=== PATIENT | male | born 1940 | race Caucasian/White ===

== ENCOUNTER 2016-08-24 08:44 | Outpatient (CLI) | payer MEDICARE, OTHER | END 2016-08-24 08:45 | disposition home or self-care (01) | DX: E11.9 Type 2 diabetes mellitus without complications (principal); E78.5 Hyperlipidemia, unspecified; I10 Essential (primary) hypertension ==

== ENCOUNTER 2017-04-05 08:00 | Outpatient (CLI) | payer MEDICARE, OTHER ==
[2017-04-05 12:56] LABS: BASOPHILS % (AUTO) 0.2 %; EOSINOPHILS % (AUTO) 0.1 %; HGB - HEMOGLOBIN 14.4 g/dL (14.0-18.0); LYMPHOCYTES # (AUTO) 3.2 10^3/uL (1.5-3.5); LYMPHOCYTES % (AUTO) 35.8 %; MEAN CORPUSCULAR HEMOGLOBIN 30.7 pg (27.0-31.0); MEAN CORPUSCULAR HGB CONC 33.9 g/dL (32.0-36.0); MEAN CORPUSCULAR VOLUME 90.7 fL (80.0-94.0); MEAN PLATELET VOLUME 11.3 fL (7.4-11.4); MONOCYTES # (AUTO) 0.9 10^3/uL (0.0-1.0); MONOCYTES % (AUTO) 10.5 %; NEUTROPHILS # (AUTO) 4.8 10^3/uL (1.5-6.6); NEUTROPHILS % (AUTO) 53.4 %; PLT - PLATELET COUNT 174 10^3/uL (130-450); RED BLOOD COUNT 4.69 10^6/uL (4.70-6.10); RED CELL DISTRIBUTION WIDTH 14.5 % (12.0-15.0); WHITE BLOOD COUNT 9.1 x10^3/uL (4.8-10.8)
[2017-04-05 13:21] LABS: ALBUMIN 4.3 g/dL (3.2-5.5); ALBUMIN/GLOBULIN RATIO 1.1 (1.0-2.2); BILIRUBIN,TOTAL 0.2 mg/dL (0.2-1.0); CALCIUM 9.6 mg/dL (8.5-10.3); CREATININE 1.1 mg/dL (0.6-1.2); TOTAL PROTEIN 8.1 g/dL (6.7-8.2)
[2017-04-05 13:42] LABS: HB2 TOTAL 15.6 g/dL; HEMOGLOBIN A1C 0.67 g/dL; HEMOGLOBIN A1C % 6.1 % (4.6-6.2)
== END 2017-04-05 08:01 | disposition home or self-care (01) ==
LOC: LAB.WCP 08:00
PROVIDERS: ATTEND Family Medicine
DX: D69.6 Thrombocytopenia, unspecified (principal); D12.6 Benign neoplasm of colon, unspecified; E11.9 Type 2 diabetes mellitus without complications; I10 Essential (primary) hypertension
CPT/HCPCS: 36415; 80053; 83036; 85025

== ENCOUNTER 2018-02-04 07:39 | Outpatient (CLI) | payer MEDICARE, OTHER ==
[2018-02-04 13:51] LABS: ALBUMIN 4.1 g/dL (3.2-5.5); ALBUMIN/GLOBULIN RATIO 1.3 (1.0-2.2); ALKALINE PHOSPHATASE 54 IU/L (42-121); ALT ALANINE AMINOTRANSFERASE 33 IU/L (10-60); AST ASPARTATE AMINOTRANSFERASE 33 IU/L (10-42); BILIRUBIN,TOTAL 0.8 mg/dL (0.2-1.0); BUN - BLOOD UREA NITROGEN 17 mg/dL (6-20); CALCIUM 9.1 mg/dL (8.5-10.3); CARBON DIOXIDE - CO2 28 mmol/L (21-32); CHLORIDE 106 mmol/L (101-111); CHOL/HDL RATIO 3.4 (<5.0); CHOLESTEROL 145 mg/dL; GFR - MDRD 73 (>89); GLUCOSE 114 mg/dL (70-100); HDL CHOLESTEROL 43 mg/dL; LDL CHOLESTEROL,CALCULATED 73 mg/dL; LDL/HDL RATIO 1.7 (<3.6); SODIUM 141 mmol/L (135-145); TOTAL PROTEIN 7.2 g/dL (6.7-8.2); VLDL CHOLESTEROL 29 mg/dL
[2018-02-04 13:57] LABS: HB2 TOTAL 14.2 g/dL; HEMOGLOBIN A1C 0.56 g/dL; HEMOGLOBIN A1C % 5.8 % (4.6-6.2)
== END 2018-02-04 23:59 ==
LOC: LAB.WCP 07:39
PROVIDERS: ATTEND Family Medicine
DX: D12.6 Benign neoplasm of colon, unspecified (principal); E11.9 Type 2 diabetes mellitus without complications; J06.9 Acute upper respiratory infection, unspecified; R74.0 Nonspecific elevation of levels of transaminase and lactic acid dehydrogenase [LDH]; E78.5 Hyperlipidemia, unspecified; I10 Essential (primary) hypertension
CPT/HCPCS: 36415; 80053; 80061; 82043; 83036; 83721

== ENCOUNTER 2018-08-08 07:35 | Outpatient (CLI) | payer MEDICARE, OTHER ==
[2018-08-08 13:26] LABS: ALBUMIN 4.2 g/dL (3.2-5.5); ALBUMIN/GLOBULIN RATIO 1.3 (1.0-2.2); BILIRUBIN,TOTAL 0.7 mg/dL (0.2-1.0); CALCIUM 9.7 mg/dL (8.5-10.3); TOTAL PROTEIN 7.4 g/dL (6.7-8.2)
[2018-08-08 13:27] LABS: HB2 TOTAL 14.5 g/dL; HEMOGLOBIN A1C 0.59 g/dL; HEMOGLOBIN A1C % 5.9 % (4.6-6.2)
== END 2018-08-08 07:36 | disposition home or self-care (01) ==
LOC: LAB.WCP 07:35
PROVIDERS: ATTEND Family Medicine
DX: R74.0 Nonspecific elevation of levels of transaminase and lactic acid dehydrogenase [LDH] (principal); E11.9 Type 2 diabetes mellitus without complications; E78.5 Hyperlipidemia, unspecified; I10 Essential (primary) hypertension; D12.6 Benign neoplasm of colon, unspecified
CPT/HCPCS: 36415; 80053; 82043; 83036

== ENCOUNTER 2018-08-15 08:16 | Outpatient (CLI) | payer MEDICARE, OTHER ==
--- NOTE | 2018-08-15 11:39 | XRAY Report ---
Reason: DYSPNEA Procedure Date: 08/15/2018 Accession Number: [id number] / [id number] Procedure: WCP - Chest 2 View X-Ray CPT Code: 06145 FULL RESULT: EXAM: CHEST RADIOGRAPHY EXAM DATE: 08/15/2018 08:31 AM. CLINICAL HISTORY: Dyspnea. COMPARISON: None. TECHNIQUE: 2 views. FINDINGS: Lungs/Pleura: No focal opacities evident. No pleural effusion. No pneumothorax. Normal volumes. Mediastinum: Heart and mediastinal contours are unremarkable with the exception of subtle calcifications of the aortic arch. Other: None. IMPRESSION: No acute airspace disease is detected. RADIA
== END 2018-08-15 08:17 | disposition home or self-care (01) ==
LOC: DI.WCP 08:16
PROVIDERS: ATTEND Family Medicine
DX: R06.00 Dyspnea, unspecified (principal)
CPT/HCPCS: 71046

== ENCOUNTER 2020-05-07 08:00 | Outpatient (CLI) | payer MEDICARE, OTHER ==
[2020-05-07 19:18] LABS: BASOPHILS % (AUTO) 0.2 %; EOSINOPHILS # (AUTO) 0.1 10^3/uL (0.0-0.7); EOSINOPHILS % (AUTO) 1.7 %; HGB - HEMOGLOBIN 13.8 g/dL (14.0-18.0); LYMPHOCYTES # (AUTO) 2.9 10^3/uL (1.5-3.5); LYMPHOCYTES % (AUTO) 48.8 %; MEAN CORPUSCULAR HEMOGLOBIN 29.8 pg (27.0-31.0); MEAN CORPUSCULAR HGB CONC 31.2 g/dL (32.0-36.0); MEAN CORPUSCULAR VOLUME 95.7 fL (80.0-94.0); MEAN PLATELET VOLUME 13.2 fL (7.4-11.4); MONOCYTES # (AUTO) 0.5 10^3/uL (0.0-1.0); MONOCYTES % (AUTO) 8.3 %; NEUTROPHILS # (AUTO) 2.4 10^3/uL (1.5-6.6); NEUTROPHILS % (AUTO) 40.5 %; PLT - PLATELET COUNT 122 10^3/uL (130-450); RED BLOOD COUNT 4.63 10^6/uL (4.70-6.10); RED CELL DISTRIBUTION WIDTH 13.4 % (12.0-15.0)
[2020-05-07 19:41] LABS: ALBUMIN 4.2 g/dL (3.2-5.5); ALBUMIN/GLOBULIN RATIO 1.3 (1.0-2.2); ALKALINE PHOSPHATASE 54 IU/L (42-121); ALT ALANINE AMINOTRANSFERASE 50 IU/L (10-60); AST ASPARTATE AMINOTRANSFERASE 35 IU/L (10-42); BILIRUBIN,TOTAL 0.7 mg/dL (0.2-1.0); BUN - BLOOD UREA NITROGEN 16 mg/dL (6-20); CALCIUM 9.7 mg/dL (8.5-10.3); CARBON DIOXIDE - CO2 28 mmol/L (21-32); CHLORIDE 98 mmol/L (101-111); CHOL/HDL RATIO 4.1 (<5.0); CHOLESTEROL 178 mg/dL; CREATININE 0.9 mg/dL (0.6-1.2); GLUCOSE 117 mg/dL (70-100); HDL CHOLESTEROL 43 mg/dL; LDL CHOLESTEROL,CALCULATED 86 mg/dL; TOTAL PROTEIN 7.4 g/dL (6.7-8.2); VLDL CHOLESTEROL 49 mg/dL
[2020-05-07 21:01] LABS: CREATININE,URINE 48.7 mg/dL; MICROALBUM/CREATININE RATIO,UR 16.4 ug/mg (<30.0); MICROALBUMIN,URINE 0.8 mg/dL (0-300.0)
== END 2020-05-07 23:59 | disposition home or self-care (01) ==
LOC: LAB.WCP 08:00
PROVIDERS: ATTEND Internal Medicine
DX: D69.6 Thrombocytopenia, unspecified (principal); I49.3 Ventricular premature depolarization; E11.9 Type 2 diabetes mellitus without complications; I10 Essential (primary) hypertension; E78.5 Hyperlipidemia, unspecified; Z12.5 Encounter for screening for malignant neoplasm of prostate; Z13.29 Encounter for screening for other suspected endocrine disorder; R74.01 Elevation of levels of liver transaminase levels
CPT/HCPCS: 36415; 80053; 80061; 82043; 82570; 83036; 84443; 85025; G0103; 83721; 84153

== ENCOUNTER 2020-08-16 09:05 | Outpatient (CLI) | payer MEDICARE, OTHER ==
--- NOTE | 2020-08-16 11:37 | Ultrasound Report ---
PROCEDURE: Aorta Screening INDICATIONS: HX OF SMOKING TECHNIQUE: Real time scanning was performed of the aorta and iliac arteries, with image documentatio n. COMPARISON: None FINDINGS: Aorta: Proximal aortic diameter measures 2.9 cm. Mid-aorta measures 2.0 cm. Distal aortic diameter is 1.6 cm. Iliac arteries: Right common iliac artery measures 1. cm. Left common iliac artery measures 1.0 cm. IMPRESSION: No aneurysm found, no aortic stenosis identified. Reviewed by: Boubacar Ventura MD on 08/16/2020 11:35 AM PDT Approved by: Boubacar Ventura MD on 08/16/2020 11:35 AM PDT Station ID: [id number]
== END 2020-08-16 09:06 | disposition home or self-care (01) ==
LOC: DI 09:05
PROVIDERS: ATTEND Internal Medicine
DX: Z13.6 Encounter for screening for cardiovascular disorders (principal); Z87.891 Personal history of nicotine dependence

== ENCOUNTER 2020-12-03 06:21 | Day surgery (SDC) | payer MEDICARE, OTHER ==
[2020-12-03] MEDS ORDERED: LACTATED RINGERS 1,000 ML IV ONE ×2 (06:32→08:05)
--- NOTE | 2020-12-03 07:10 | HISTORY & PHYSICAL EXAMINATION ---
Chief Complaint - Chief Complaint Chief Complaint: history of colon polyps History of Present Illness - History Obtained From Records Reviewed: yes History obtained from: pt Exam Limitations: none - History of Present Illness HPI Comment/Other: History of colon polyps. Here for surveillance colonoscopy. History - Past Medical History Cardiovascular: reports: Hypertension, High cholesterol, Arrhythmia Respiratory: reports: None Endocrine/Autoimmune: reports: Type 2 diabetes GI: reports: None : reports: None HEENT: reports: None Psych: reports: None Musculoskeletal: reports: Chronic back pain Derm: reports: None MRSA Hx?: No - Past Surgical History General: reports: Colonoscopy Meds/Allgy - Home Medications Home Medications: Ambulatory Orders Medication Instructions Recorded Confirmed Aspirin [Adult Low Dose Aspirin EC] 81 mg PO DAILY 10/13/15 12/03/20 Centrum Silver 1 tab PO DAILY 10/13/15 12/03/20 Losartan [Cozaar] 1 tab PO DAILY 10/13/15 12/03/20 Pravastatin Sodium [Pravachol] 1 tab PO DAILY 10/13/15 12/03/20 metFORMIN [Glucophage] 500 mg PO DAILY 10/13/15 12/03/20 - Allergies Allergies/Adverse Reactions: Allergies Allergy/AdvReac Type Severity Reaction Status Date / Time niacin AdvReac Rash Verified 10/12/15 14:39 simvastatin AdvReac Rash Verified 10/12/15 14:39 Review of Systems - Other Findings Other Findings: 10 pt ros as above otherwise unremarkable Exam - Vital Signs Reviewed Vital Signs: Yes Vital Signs: Vital Signs x48h Temp Pulse Resp BP Pulse Ox 12/03/20 06:32 36.2 C L 93 16 144/90 H 94 - Physical Exam General Appearance: positive: No acute distress, Alert Eyes Bilateral: positive: PERRL, EOMI ENT: positive: No signs of dehydration Neck: positive: No JVD Respiratory: positive: No respiratory distress, Breath sounds nml Cardiovascular: positive: Regular rate & rhythm Abdomen: positive: Non-tender, No distention Neurologic/Psychiatric: positive: Oriented x3 Conclusion/Plan - Problem List (1) History of adenomatous polyp of colon Conclusion/Plan: plan colonoscopy. parq held and consent obtained
[2020-12-03] MEDS ORDERED: fentaNYL 250 MCG/5 ML VIAL ONE (07:21)
[2020-12-03] MEDS ORDERED: MIDAZOLAM 2 MG/2 ML VIAL ONE ×2 (07:21→07:32)
[2020-12-03 08:27] VITALS: BP 130/85
== END 2020-12-03 06:22 | disposition home or self-care (01) ==
LOC: SDS 06:21
PROVIDERS: ATTEND Surgery
PROC: 0DBN8ZZ Excision of Sigmoid Colon, Via Natural or Artificial Opening Endoscopic (ICD-10-PCS; 2020-12-03)
PROC: 0DBM8ZZ Excision of Descending Colon, Via Natural or Artificial Opening Endoscopic (ICD-10-PCS; 2020-12-03)
PROC: 0DBL8ZZ Excision of Transverse Colon, Via Natural or Artificial Opening Endoscopic (ICD-10-PCS; 2020-12-03)
PROC: 0DBM8ZZ Excision of Descending Colon, Via Natural or Artificial Opening Endoscopic (ICD-10-PCS; principal; 2020-12-03 07:30)
DX: Z12.11 Encounter for screening for malignant neoplasm of colon (principal); D12.4 Benign neoplasm of descending colon; D12.5 Benign neoplasm of sigmoid colon; D12.3 Benign neoplasm of transverse colon; K57.30 Diverticulosis of large intestine without perforation or abscess without bleeding
CPT/HCPCS: 45380; 45385; J3010; J7120

== ENCOUNTER 2020-12-17 10:39 | Outpatient (CLI) | payer MEDICARE, OTHER ==
[2020-12-17 17:51] LABS: CALCIUM 9.5 mg/dL (8.5-10.3); CREATININE 1.1 mg/dL (0.6-1.2); POTASSIUM 4.9 mmol/L (3.5-5.0)
[2020-12-17 21:18] LABS: ESTIMATED AVERAGE GLUCOSE 126 mg/dL (70-100)
== END 2020-12-17 23:59 | disposition home or self-care (01) ==
LOC: LAB.WCP 10:39
PROVIDERS: ATTEND Internal Medicine
DX: E11.9 Type 2 diabetes mellitus without complications (principal)
CPT/HCPCS: 36415; 80048; 83036

== ENCOUNTER 2020-12-24 08:58 | Outpatient (CLI) | payer MEDICARE, OTHER ==
--- NOTE | 2020-12-24 16:46 | XRAY Report ---
PROCEDURE: Lumbar Spine Complete INDICATIONS: LS PAIN INCREAS FOR SEVERAL MONTHS ASSESS FOR DJD +COMPRESSION FX TECHNIQUE: 5 views of the lumbar spine were acquired. COMPARISON: None. FINDINGS: Bones: 5 [id number] vertebrae are present. There is normal bony alignment. No vertebral body compression fractures. No suspicious bony lesions. No pars interarticularis defects. Moderate L5-S1 degenerative disease. Mild L1-L2, L2-L3, L3-L4 and L4-L5 degenerative disc disease. Mild L4-L5 and L5 -S1 facet arthropathy. Soft tissues: Overlying bowel gas pattern is normal. No suspicious soft tissue calcifications. IMPRESSION: 1. Multilevel degenerative disc disease. 2. Multilevel facet arthropathy. 3. No fracture. No acute osseous lesion. If there is continued clinical concern for pathology, then M RI should be considered for further evaluation. Reviewed by: Chaya Finley MD, PhD on 12/24/2020 4:44 PM PDT Approved by: Chaya Finley MD, PhD on 12/24/2020 4:44 PM PDT Station ID: [id number]
== END 2020-12-24 08:59 | disposition home or self-care (01) ==
LOC: LAB.N 08:58 → DI.N 08:59
PROVIDERS: ATTEND Internal Medicine
DX: M47.816 Spondylosis without myelopathy or radiculopathy, lumbar region (principal); M51.36 Other intervertebral disc degeneration, lumbar region; M47.817 Spondylosis without myelopathy or radiculopathy, lumbosacral region; M51.37 Other intervertebral disc degeneration, lumbosacral region
CPT/HCPCS: 36415; 80053; 80061; 82043; 82570; 83036; 83721; 85025

== ENCOUNTER 2021-08-10 07:20 | Outpatient (CLI) | payer MEDICARE, OTHER ==
[2021-08-10 11:42] LABS: BASOPHILS % (AUTO) 0.2 %; EOSINOPHILS # (AUTO) 0.1 10^3/uL (0.0-0.7); EOSINOPHILS % (AUTO) 0.9 %; HCT - HEMATOCRIT 43.1 % (42.0-52.0); HGB - HEMOGLOBIN 13.8 g/dL (14.0-18.0); LYMPHOCYTES # (AUTO) 3.1 10^3/uL (1.5-3.5); LYMPHOCYTES % (AUTO) 48.9 %; MEAN CORPUSCULAR HEMOGLOBIN 29.8 pg (27.0-31.0); MEAN CORPUSCULAR VOLUME 93.1 fL (80.0-94.0); MONOCYTES # (AUTO) 0.6 10^3/uL (0.0-1.0); NEUTROPHILS # (AUTO) 2.5 10^3/uL (1.5-6.6); NEUTROPHILS % (AUTO) 39.1 %; PLT - PLATELET COUNT 98 10^3/uL (130-450); RED BLOOD COUNT 4.63 10^6/uL (4.70-6.10); RED CELL DISTRIBUTION WIDTH 14.6 % (12.0-15.0); WHITE BLOOD COUNT 6.3 x10^3/uL (4.8-10.8)
[2021-08-10 12:17] LABS: PLATELET ESTIMATE, MANUAL DECREASED (<130,000) (NORMAL); PLATELET MORPHOLOGY 1+ GIANT PLATELETS (NORMAL); RBC MORPHOLOGY (MULTIPLE) NORMAL APPEARANCE (NORMAL); SLIDE REVIEW? Indicated
[2021-08-10 12:47] LABS: ALBUMIN 4.4 g/dL (3.2-5.5); ALBUMIN/GLOBULIN RATIO 1.2 (1.0-2.2); ALKALINE PHOSPHATASE 72 IU/L (42-121); ALT ALANINE AMINOTRANSFERASE 44 IU/L (10-60); AST ASPARTATE AMINOTRANSFERASE 47 IU/L (10-42); BILIRUBIN,TOTAL 0.8 mg/dL (0.2-1.0); BUN - BLOOD UREA NITROGEN 23 mg/dL (6-20); CALCIUM 9.5 mg/dL (8.5-10.3); CARBON DIOXIDE - CO2 28 mmol/L (21-32); CHLORIDE 103 mmol/L (101-111); CHOL/HDL RATIO 3.4 (<5.0); CHOLESTEROL 165 mg/dL; CREATININE 1.4 mg/dL (0.6-1.2); GFR - MDRD 49 (>89); GLUCOSE 106 mg/dL (70-100); HDL CHOLESTEROL 48 mg/dL; LDL CHOLESTEROL,CALCULATED 96 mg/dL; POTASSIUM 4.3 mmol/L (3.5-5.0); SODIUM 141 mmol/L (135-145); TOTAL PROTEIN 8.2 g/dL (6.7-8.2); TRIGLYCERIDES 107 mg/dL; VLDL CHOLESTEROL 21 mg/dL
[2021-08-10 12:54] LABS: CREATININE,URINE 293.6 mg/dL; MICROALBUM/CREATININE RATIO,UR 17.7 ug/mg (<30.0); MICROALBUMIN,URINE 5.2 mg/dL (0-300.0)
[2021-08-10 13:12] LABS: ESTIMATED AVERAGE GLUCOSE 126 mg/dL (70-100)
== END 2021-08-10 07:21 | disposition home or self-care (01) ==
LOC: LAB.N 07:20
PROVIDERS: ATTEND Internal Medicine
DX: E78.5 Hyperlipidemia, unspecified (principal); E11.9 Type 2 diabetes mellitus without complications; D69.6 Thrombocytopenia, unspecified
CPT/HCPCS: 36415; 80053; 80061; 82043; 82570; 83036; 83721; 85025

== ENCOUNTER 2021-12-27 07:30 | Outpatient (CLI) | payer MEDICARE, OTHER ==
[2021-12-27 12:52] LABS: CREATININE,URINE 123.8 mg/dL; MICROALBUM/CREATININE RATIO,UR 26.7 ug/mg (<30.0); MICROALBUMIN,URINE 3.3 mg/dL (0-300.0)
[2021-12-27 13:01] LABS: CALCIUM 9.7 mg/dL (8.5-10.3); CREATININE 1.1 mg/dL (0.6-1.2); POTASSIUM 4.5 mmol/L (3.5-5.0)
[2021-12-27 20:24] LABS: ESTIMATED AVERAGE GLUCOSE 117 mg/dL (70-100); HEMOGLOBIN A1c% 5.7 % (4.27-6.07)
== END 2021-12-27 07:31 | disposition home or self-care (01) ==
LOC: LAB.N 07:30
PROVIDERS: ATTEND Internal Medicine
DX: E11.9 Type 2 diabetes mellitus without complications (principal)
CPT/HCPCS: 36415; 80048; 82043; 82570; 83036

== ENCOUNTER 2022-05-10 21:52 | Outpatient (CLI) | payer MEDICARE, OTHER | END 2022-05-10 21:53 | disposition critical access hospital (66) | LOC: EMS 21:52 | DX: S99.911A Unspecified injury of right ankle, initial encounter (principal); W11.XXXA Fall on and from ladder, initial encounter; Y92.008 Other place in unspecified non-institutional (private) residence as the place of occurrence of the external cause | CPT/HCPCS: A0425; A0429 ==

== ENCOUNTER 2022-05-10 22:05 | Emergency (ER) | payer MEDICARE, OTHER ==
--- NOTE | 2022-05-10 23:01 | ED Physician Documentation ---
PD HPI LOWER EXT INJURY - Stated complaint Stated Complaint: FALL/ANKLE PX - Chief complaint Chief Complaint: Trauma Ext - History obtained from History obtained from: Patient - History of Present Illness PD HPI LOW EXT INJURY LOCATION: Right, Ankle Type of injury: Fall Where injury occurred: Home Timing - details: Abrupt onset Improved by: Rest Worsened by: Moving, Palpating Associated symptoms: Swelling. No: Weakness, Numbness, Tingling Contributing factors: No: Anticoagulated, Prior ortho surgery, Prosthetic joint - Additional information Additional information: HPI from patient. 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 Denies other injury, denies head injury, LOC, LIZ[place]A, neck pain. He says the right ankle became caught in the rungs of the ladder when he fell. Pain is worse with movement and any attempt to bear weight. Review of Systems Skin: denies: Abrasion (s), Laceration (s) Musculoskeletal: reports: Joint pain, Joint swelling, Pain with weight bearing. denies: Neck pain, Back pain Neurologic: denies: Focal weakness, Numbness, Confused, Altered mental status, Headache, Head injury, LOC PD PAST MEDICAL HISTORY - Past Medical History Cardiovascular: Hypertension, High cholesterol, Arrhythmia Respiratory: None Endocrine/Autoimmune: Type 2 diabetes GI: None : None HEENT: None Psych: None Musculoskeletal: Chronic back pain Derm: None - Past Surgical History General: Colonoscopy - Present Medications Home Medications: Ambulatory Orders Medication Instructions Recorded Confirmed Aspirin [Adult Low Dose Aspirin EC] 81 mg PO DAILY 10/13/15 12/03/20 Centrum Silver 1 tab PO DAILY 10/13/15 12/03/20 Losartan [Cozaar] 1 tab PO DAILY 10/13/15 12/03/20 Pravastatin Sodium [Pravachol] 1 tab PO DAILY 10/13/15 12/03/20 metFORMIN [Glucophage] 500 mg PO DAILY 10/13/15 12/03/20 Oxycodone HCl/Acetaminophen 1 - 2 each PO Q6H PRN #20 tablet 05/11/22 [Percocet 5-325 mg Tablet] - Allergies Allergies/Adverse Reactions: Allergies Allergy/AdvReac Type Severity Reaction Status Date / Time niacin AdvReac Rash Verified 10/12/15 14:39 simvastatin AdvReac Rash Verified 10/12/15 14:39 PD ED PE NORMAL - Vitals Vital signs reviewed: Yes - General General: Alert and oriented X 3, No acute distress, Well developed/nourished - HEENT HEENT: Atraumatic, PERRL, EOMI - Neck Neck: No bony TTP, C-Spine cleared by NEXUS criteria - Cardiac Cardiac: RRR, No murmur - Respiratory Respiratory: No respiratory distress, Clear bilaterally - Derm Derm: Normal color, Warm and dry - Neuro Neuro: Alert and oriented X 3, harpsichord maker 2-12 intact, No motor deficit, No sensory deficit PD ED PE EXPANDED - Extremities Extremities: Deformity, Tenderness, Limited ROM, Swelling, Right ankle, Pedal Pulses Present, Motor intact, Sensory intact, Vascular intact. No: Cold foot, Pale foot Results - Vitals Vitals: Vital Signs - 24 hr 05/11/22 05/11/22 05/11/22 00:38 00:40 00:41 Heart Rate 89 89 90 Respiratory 13 19 14 Rate Blood Pressure 139/70 H 119/70 107/66 O2 Saturation 100 96 87 L 05/11/22 05/11/22 05/11/22 00:45 00:46 01:17 Heart Rate 82 91 84 Respiratory 14 13 12 Rate Blood Pressure 103/66 111/63 O2 Saturation 100 91 L 100 05/11/22 03:30 Heart Rate 86 Respiratory 16 Rate Blood Pressure 126/73 O2 Saturation 93 Oxygen O2 Source Room air - Rads (name of study) right ankle xrays Radiology: Prelim report reviewed, EMP read indepedently, See rad report post-reduction right ankle xrays Radiology: Prelim report reviewed, EMP read indepedently, See rad report Procedures - Splint (location) - Minor Lower extremity right Splint applied by: Tech Type of splint: Fiberglass, Long leg, Posterior, Stirrup Other: Patient tolerated well, No complications, Neurovascular intact, Good alignment, Crutches provided - Reduction Body part reduced: Right, Ankle Fracture or dislocation: Fracture dislocation Anesthesia: Morphine, Dilaudid, Other Reduction aftercare: NV intact, Xray confirms reduction, Alignment improved, Splint applied, Crutches, Patient tolerated well - Procedural sedation Sedation prep: Informed consent, Time out completed, Last meal (10:30), PE performed, ASA 2 - mild disease, IV O2 monitor, ET CO2 monitor, RT present Sedation Medications: propofol Mallampati classification: II Patient status during sedation: Drowsy, Vitals remained stable, Maintained airway, Recovered uneventfully Sedation recovery: Recovered uneventfully, Back to baseline Time in sedation (Minutes): 15 PD Medical Decision Making - ED course Complexity details: reviewed results, re-evaluated patient, considered differential, d/w patient ED course: Right ankle fracture/dislocation with obvious deformity on exam but no tenting of skin and NVI pre/post reduction. He repeatedly declines pain medication for most of ED stay. After xrays are obtained, I explained the findings and the need for reduction and splinting of the injury, and that this would likely cause significant discomfort and thus I recommend conscious sedation. Patient expresses understanding of, and agreement with, this approach. He is given 2mg IV morphine for analgesia as well as to gauge response to narcotic analgesics (patient does not recall if he has ever had morphine or dilaudid and thus unsure how he tolerates/reacts to these medications). He does not have any significant change (improvement nor worsening) on reevaluation after the morphine. We then proceeded to conscious sedation with 1mg IV dilaudid and I then administered aliquots of propofol , titrating to adequate effect. The right ankle was easily reduced with gentle in-line traction. Splint applied by convenience recycle center tech (stirrup and posterior), and on reexamination after splint placement, the leg remains NVI with brisk capillary refill and LTS intact at toes. He is provided crutches, prescription for percocet electronically submitted to his pharmacy of choice. He is carefully instructed by me to not remove the splint until and unless advised otherwise by orthopedic surgery. I also instructed him to not drive nor attempt any weight-bearing on the RLE until advised otherwise by orthopedics. Return precautions discussed. On the reevaluation , he has already returned to baseline mental status, AAOX3 , conversant and appropriate. I am prescribing a short course of short-acting opioid pain medication for this patient. I have reviewed the patients CLASS A LINEMAN and no concerning findings were noted. I have discussed that the opioids are for short term therapy only, and will not be refilled from the ED. Departure - Departure Disposition: 01 Home, Self Care Clinical Impression: Closed right ankle fracture Qualifiers: Encounter type: initial encounter Qualified Code(s): S82.891A - Other fracture of right lower leg, initial encounter for closed fracture Condition: Good Instructions: ED Fx Ankle General, ED Crutch Walking, ED Splint Care Fiberglass Prescriptions: Oxycodone HCl/Acetaminophen [Percocet 5-325 mg Tablet] 1 - 2 each PO Q6H PRN #20 tablet PRN Reason: pain Comments: You have a fracture (broken) your right ankle in 2 different places; as result of these fractures, there was also dislocation of the ankle joint. I was able to realign (reduce) the dislocation. It will take several weeks for the frac tures to heal. It is critically important that you keep the splint in place and use the crutches until you are told otherwise by an orthopedic surgeon. You will need to see an orthopedic surgeon within the coming week. Contact your insurance provider or your primary care provider to inquire about a referral to orthopedic surgeon. It is essential that you maintain strict nonweightbearing of the right leg; the crutches are provided for this. A prescription for Percocet (opiate/narcotic pain medication) has been electronically submitted to the [facility] pharmacy in [place]. I am prescribing a short course of narcotic pain medication for you. These are potentially dangerous and addictive medications that should be used carefully. These medications may constipate you. Take an ijxh-rat-pwevhdk stool softener (docusate) twice daily with plenty of water while taking these medications. If you go 24 hours without a bowel movement, take peks-uku-qbzjlwl miralax, per package instructions. Do not drink or drive while taking these medications. If you received narcotic or sedating medications while in the emergency department, do not drive for 24 hours. Store this medication in a safe, secure place and out of reach of children. It is a violation of federal law to give or sell this medication to another person or to use in a manner other than prescribed. The ED will not refill narcotic prescriptions, including prescriptions lost or stolen. To dispose of unwanted medications: 1. [facility] at [address] in [place] has a medication drop box. They accept prescription medications (in pill form) Sunday through Sunday 9:00 a.m. to 5:00 p.m. 2. The [facility] [employer] accepts prescription medications (in pill form only) for disposal year round. Call for more information. 3. Contact the [facility] for the next [facility] sponsored prescription drug collection event. , [phone], or [phone]; Discharge Date/Time: 05/11/22 03:32
[2022-05-10] MEDS ORDERED: MORPHINE 2 MG/ML CARPUJECT IVP STA (23:38)
[2022-05-10] MEDS ORDERED: PROPOFOL 200 MG/20 ML VIAL IVP STA (23:38)
[2022-05-10] MEDS ORDERED: HYDROmorphone 1 MG/ML CARPUJECT IVP STA (23:38)
--- NOTE | 2022-05-11 00:03 | XRAY Report ---
PROCEDURE: Ankle 2 View RT INDICATIONS: fall/injury, obvious deformity TECHNIQUE: 2 views of the ankle were acquired. COMPARISON: None FINDINGS: Bones: There is a bimalleolar fracture dislocation. There is posterior displacement of the tibiotalar articulation and superior displacement of the posterior malleolar fracture. There is a spiral fractu re of the distal fibula at the level of the syndesmosis. There is medial mortise widening with no def inite medial malleolar fracture. Soft tissues: Joint effusion present. Tibiotalar joint effusion. Achilles tendon appears normal. IMPRESSION: 1. Right ankle fracture dislocation. Reviewed by: Celeste Canseco MD on 05/11/2022 12:02 AM PST Approved by: Celeste Canseco MD on 05/11/2022 12:02 AM PST Station ID: [id number]
--- NOTE | 2022-05-11 01:25 | XRAY Report ---
PROCEDURE: Ankle 2 View RT INDICATIONS: post-reduction TECHNIQUE: 2 views of the ankle were acquired. COMPARISON: 05/10/2022 FINDINGS: Bones: There is been reduction of the tibiotalar fracture dislocation with near-anatomic tibiotalar j oint alignment. Mildly displaced spiral distal fibular fracture is again noted. There may still be sl ight medial mortise widening, however the alignment across the talar dome on the AP view is much impr du. Posterior malleolar fracture remains mildly displaced. Soft tissues: No significant change. IMPRESSION: Successful reduction of her ankle fracture dislocation with near-anatomic alignment and mildly displaced fracture fragments. Reviewed by: Celeste Canseco MD on 05/11/2022 1:24 AM PST Approved by: Celeste Canseco MD on 05/11/2022 1:24 AM PST Station ID: [id number]
[2022-05-11 03:31] VITALS: BP 126/73
== END 2022-05-11 03:32 | disposition home or self-care (01) ==
LOC: EDUNIT# → ED 22:05
DX: S82.891A Other fracture of right lower leg, initial encounter for closed fracture (principal); W11.XXXA Fall on and from ladder, initial encounter; Y92.009 Unspecified place in unspecified non-institutional (private) residence as the place of occurrence of the external cause; I10 Essential (primary) hypertension; E11.9 Type 2 diabetes mellitus without complications; E78.00 Pure hypercholesterolemia, unspecified; Z79.82 Long term (current) use of aspirin; Z79.84 Long term (current) use of oral hypoglycemic drugs; Z79.899 Other long term (current) drug therapy
CPT/HCPCS: 27840; 73600; 96374; 96375; 99152; 99283; J1170; 94770

== ENCOUNTER 2022-05-16 08:00 | Outpatient (CLI) | payer MEDICARE, OTHER ==
--- NOTE | 2022-05-16 16:08 | XRAY Report ---
PROCEDURE: Ankle 3 View RT INDICATIONS: RIGHT ANKLE FRACTURE TECHNIQUE: 2 views of the ankle were acquired. COMPARISON: 05/11/2022 FINDINGS: Bones: Stable alignment of lateral and posterior malleoli fractures. There is slight lateral subluxat ion of the talus Soft tissues: No tibiotalar joint effusion. Achilles tendon appears normal. IMPRESSION: Stable alignment of lateral and posterior malleolus fracture. Slight lateral subluxation of the talus. Reviewed by: Chaya Finley MD, PhD on 05/16/2022 4:06 PM PST Approved by: Chaya Finley MD, PhD on 05/16/2022 4:06 PM PST Station ID: [id number]
== END 2022-05-16 23:59 | disposition home or self-care (01) ==
LOC: DI.WOS 08:00
PROVIDERS: ATTEND Orthopaedic Surgery
DX: S82.61XD Displaced fracture of lateral malleolus of right fibula, subsequent encounter for closed fracture with routine healing (principal); S82.891D Other fracture of right lower leg, subsequent encounter for closed fracture with routine healing; S93.01XD Subluxation of right ankle joint, subsequent encounter

== ENCOUNTER 2022-05-22 10:39 | Day surgery (SDC) | payer MEDICARE, OTHER ==
[~2022-05-22 10:39] MED LIST: ACETAMINOPHEN 500 MG TABLET PO ONE; CEFAZOLIN 2G/50ML 0.9% NS 2 GM/50 ML BAG IV ONE
[2022-05-22] MEDS ORDERED: LACTATED RINGERS 1,000 ML IV ONE ×2 (11:00→14:25)
--- NOTE | 2022-05-22 11:33 | ANESTHESIA ---
Pre-Anesthesia VS, & Labs - Diagnosis right ankle fracture - Procedure ORIF right bimalleollar fracture Vital Signs: Temp Pulse Resp BP Pulse Ox O2 Flow Rate 37.1 C 100 14 137/64 H 96 05/22/22 11:01 05/22/22 11:01 05/22/22 11:01 05/22/22 11:01 05/22/22 11:01 Height: 6 ft Weight (kg): 83.01 kg Body Mass Index: 24.8 BMI Classification: Normal - NPO >8 hours - Lab Results Current Lab Results: Laboratory Tests 05/22/22 11:09: POC Whole Bld Glucose 125 H Home Medications and Allergies Aspirin [Adult Low Dose Aspirin EC] 81 mg PO DAILY 10/13/15 Centrum Silver 1 tab PO DAILY 10/13/15 Losartan [Cozaar] 100 mg PO DAILY 10/13/15 Pravastatin Sodium [Pravachol] 1 tab PO DAILY 10/13/15 metFORMIN [Glucophage] 250 mg PO BID 10/13/15 Allergies/Adverse Reactions: Allergies Allergy/AdvReac Type Severity Reaction Status Date / Time niacin AdvReac Rash Verified 05/22/22 10:59 simvastatin AdvReac Rash Verified 05/22/22 10:59 Anes History & Medical History - Anesthetic History Anesthesia Complications: reports: No previous complications - Medical History Cardiovascular: reports: Hypertension, High cholesterol, Arrhythmia Pulmonary: reports: None Gastrointestinal: reports: None Urinary: reports: Benign prostate hypertrophy Musculoskeletal: reports: None Endocrine/Autoimmune: reports: Type 2 diabetes Skin: reports: Psoriasis Smoking Status: Never smoker - Surgical History General: reports: Colonoscopy, Other Eyes Ears Nose Throat (EENT): reports: Cataracts Exam General: Alert, Oriented x3 Mouth Opening: Greater than 4 Fingerbreadths Neck Mobility: Normal Mallampati classification: II Thyromental Distance: greater than 6 cm Respiratory: Lungs clear Cardiovascular: Regular rate, Normal S1, Normal S2 Plan Anesthesia Type: General, Popliteal Block, Adductor Block Regional Block: Per Surgeon's request for Post Op pain control Consent for Procedure(s) Verified and Reviewed: Yes Code Status: Attempt Resuscitation ASA classification: 2-Mild systemic disease Is this case an emergency?: No
[2022-05-22] MEDS ORDERED: NALOXONE 0.4 MG/ML VIAL IVP PRN (11:36)
[2022-05-22] MEDS ORDERED: MORPHINE 2 MG/ML CARPUJECT IVP PRN (11:36)
[2022-05-22] MEDS ORDERED: METOCLOPRAMIDE 10 MG/2 ML VIAL IVP PRN (11:36)
[2022-05-22] MEDS ORDERED: ATROPINE ABBOJECT 1 MG/10 ML SYRINGE IVP PRN (11:36)
[2022-05-22] MEDS ORDERED: HYDROmorphone 0.5 MG/0.5 ML SYRINGE IVP PRN (11:36)
[2022-05-22] MEDS ORDERED: ONDANSETRON 4 MG/2 ML VIAL IVP PRN (11:36)
[2022-05-22] MEDS ORDERED: fentaNYL 100 MCG/2 ML VIAL IVP PRN (11:36)
[2022-05-22] MEDS ORDERED: ePHEDrine 50 MG/ML VIAL IVP PRN (11:36)
[2022-05-22] MEDS ORDERED: ROPIVACAINE 0.5% PF 20 ML VIAL ONE (11:47)
[2022-05-22] MEDS ORDERED: PROPOFOL 200 MG/20 ML VIAL IVP ONE (11:47)
[2022-05-22] MEDS ORDERED: DEXAMETHASONE 4 MG/ML VIAL ONE (11:47)
[2022-05-22] MEDS ORDERED: MIDAZOLAM 2 MG/2 ML VIAL ONE (11:49)
[2022-05-22] MEDS ORDERED: LACTATED RINGERS 1,000 ML IV SCH (12:00)
[2022-05-22] MEDS ORDERED: BUPIVACAINE 0.25% PF 30 ML VIAL ONE (12:16)
[2022-05-22] MEDS ORDERED: TRANEXAMIC ACID 1,000 MG/10 ML VIAL ONE (12:54)
[2022-05-22] MEDS ORDERED: ONDANSETRON 4 MG/2 ML VIAL ONE (12:54)
[2022-05-22] MEDS ORDERED: ePHEDrine 50 MG/ML VIAL IVP ONE (13:01)
[2022-05-22] MEDS ORDERED: VANCOMYCIN 1 GM VIAL ONE (13:19)
[2022-05-22] MEDS ORDERED: VANCOMYCIN 1 GM VIAL MC ONE (13:20)
[2022-05-22] MEDS ORDERED: CELECOXIB 100 MG CAPSULE PO PRN (14:27)
[2022-05-22] MEDS ORDERED: ONDANSETRON ODT 4 MG TABLET TL PRN (14:27)
[2022-05-22] MEDS ORDERED: ACETAMINOPHEN 500 MG TABLET PO PRN (14:27)
[2022-05-22] MEDS ORDERED: oxyCODONE 5 MG TABLET PO PRN (14:27)
--- NOTE | 2022-05-22 14:29 | OPERATIVE REPORT ---
Operative Report - General Procedure Date: 05/22/22 Planned Procedure: Open reduction internal fixation right ankle Pre-Op Diagnosis: Displaced bimalleolar fracture distal Tatian right ankle Procedure Performed: Open reduction internal fixation lateral malleolus right ankle with locking semitubular plate by Arthrex Post Op Diagnosis: Same as preoperative diagnosis - Procedure Note Primary Surgeon: Romel Marquez MD Secondary Surgeon: Augustina Osman PAC Anesthesia Technique: General LMA, Regional block Estimated Blood Loss (mL): 15 Indications: This is a 82-year-old gentleman with a history of fall and injury to right ankle that occurred about a week and a half ago. He had subluxation of the talus and a displaced lateral malleolus fracture of the right ankle. He was seen in my office and found to have relatively large fracture blisters and swelling. His surgical stabilization of the right ankle was delayed to allow improvement in soft tissues namely swelling and blister formation associated with the fracture subluxation of his right ankle. His routine radiographs showed a displaced lateral malleolus fracture beginning at and extending proximal several centimeters in the lateral malleolus/fibula. The medial malleolus was intact. There was a widened clear space with lateral talar subluxation. He signed informed consent and is agreement to surgery for his right ankle. Findings: The fracture of the lateral malleolus was unstable, long oblique fracture measuring several centimeters beginning just above the lateral malleolus and extending proximally. There was a spike of bone proximally associated with the distal fracture fragment. The distal fracture fragment was posterolateral. The syndesmosis appeared intact. Complications: None - Other Other Information/Narrative: Patient was brought to the operating room table. He had received a popliteal block in the preoperative holding area. He was given a general LMA anesthetic, supine position. The right lower extremity was prepped and draped in sterile manner in the usual fashion. No tourniquet was utilized. The right leg was suspended over a foam bolster. A hip bump was placed beneath the right buttock to internally rotate the right lower extremity. A timeout procedure was performed by the entire operating room team and all were in agreement. A longitudinal incision was made over the posterior border of the fibula. The fracture was exposed. The hematoma was removed using saline and a curette. The fracture was reduced with traction and some internal rotation. The fracture was temporary stabilized with a bone clamp while the plate was inserted posterolaterally, protecting the peroneals. The fracture seem to align well. A lag screw was placed through the plate to stabilize the fracture and additional screws were placed proximal and distal using locking fixation, 10 hole one third locking tubular plate. The plate seem to conform well to the fracture. The C- arm image intensifier was used intermittently and showed good alignment of the ankle mortise and fracture of the lateral malleolus.The wound was thoroughly irrigated with dilute Betadine, sterile. 1 g of vancomycin powder was inserted over the plate. The peroneal muscle was closed over the plate to provide a good vascular base covering the plate.Subcutaneous tissue was closed with 2 oh strata fix, skin closed with stainless steel francisca. Care was taken to minimize trauma to soft tissues throughout the procedure. Xeroform, fluffs, cast padding and a padded posterior fiberglass splint was applied, short leg. He received 2 g of Ancef intravenously, tolerated procedure well. The final C-arm images showed good alignment of the ankle mortise ankle fracture fixation
--- NOTE | 2022-05-22 15:25 | XRAY Report ---
PROCEDURE: OR C-Arm Procedure INDICATIONS: ORIF RIGHT ANKLE FLUORO TIME: 0:05 MIN TECHNIQUE: Intraoperative nondiagnostic fluoroscopic images of the right ankle. COMPARISON: Prior right ankle radiographs. FINDINGS/IMPRESSION: Postsurgical changes of right ankle ORIF without acute complicating hardware feature demonstrated. Im proved fracture fragment alignment. Reviewed by: Thomspon Clay MD on 05/22/2022 3:24 PM PST Approved by: Thompson Clay MD on 05/22/2022 3:24 PM PST Station ID: [id number]
[2022-05-22 15:47] VITALS: BP 111/63
--- NOTE | 2022-05-22 16:13 | ANESTHESIA POST OP EVALUATION ---
Anesthesia Post Eval - Post Anesthesia Eval Vitals: Last Vital Signs Temp 36.6 C 05/22/22 15:30 Pulse 82 05/22/22 15:30 Resp 14 05/22/22 15:30 BP 111/63 05/22/22 15:30 Pulse Ox 93 05/22/22 15:30 O2 Flow Rate CV Function Including HR & BP: Stable Pain Control: Satisfactory Nausea & Vomiting: Negative Mental Status: Baseline Respiratory Status: Airway Patent Hydration Status: Satisfactory Anesthesia Complications: None
== END 2022-05-22 10:40 | disposition home or self-care (01) ==
LOC: SDS 10:39
PROVIDERS: ATTEND Orthopaedic Surgery
DX: S82.841A Displaced bimalleolar fracture of right lower leg, initial encounter for closed fracture (principal); E11.9 Type 2 diabetes mellitus without complications
CPT/HCPCS: 27814; A9270; C1713; J0690; J2795; J3370; J7120

== ENCOUNTER 2022-06-19 08:00 | Outpatient (CLI) | payer MEDICARE, OTHER ==
--- NOTE | 2022-06-19 13:45 | XRAY Report ---
PROCEDURE: Ankle 3 View RT INDICATIONS: RIGHT ANKLE FRACTURE TECHNIQUE: 3 views of the ankle were acquired. COMPARISON: 05/16/2022 FINDINGS: Bones: Similar alignment of the distal fibula shaft fracture, status post ORIF. No hardware complica tion. Soft tissues: No tibiotalar joint effusion. Achilles tendon appears normal. IMPRESSION: No hardware convocation, status post fibula ORIF. Reviewed by: Magdiel Clancy on 06/19/2022 12:25 PM PDT Approved by: Magdiel Clancy on 06/19/2022 12:25 PM PDT Station ID: [id number]
== END 2022-06-19 23:59 | disposition home or self-care (01) ==
LOC: DI.WOS 08:00
PROVIDERS: ATTEND Orthopaedic Surgery
DX: S82.841D Displaced bimalleolar fracture of right lower leg, subsequent encounter for closed fracture with routine healing (principal)

== ENCOUNTER 2022-07-18 08:00 | Outpatient (CLI) | payer MEDICARE, OTHER ==
--- NOTE | 2022-07-18 14:34 | XRAY Report ---
PROCEDURE: Ankle 3 View RT INDICATIONS: RIGHT ANKLE ORIF TECHNIQUE: 3 views of the ankle were acquired. COMPARISON: 06/19/2022 FINDINGS: Bones: Fibular plate/screw fixation. No new acute osseous finding. Mildly displaced bone fragment ag ain seen on lateral view. Ankle mortise appears intact. Calcaneal enthesopathy. Soft tissues: No suspicious calcifications. Soft tissue swelling is present. IMPRESSION: Fibular plate/screw fixation appears similar to prior. No new or acute osseous abnormality. Reviewed by: Quintin Day MD on 07/18/2022 2:33 PM PDT Approved by: Quintin Day MD on 07/18/2022 2:33 PM PDT Station ID: [id number]
== END 2022-07-18 08:01 | disposition home or self-care (01) ==
LOC: DI.WOS 08:00
PROVIDERS: ATTEND Orthopaedic Surgery
DX: S82.841D Displaced bimalleolar fracture of right lower leg, subsequent encounter for closed fracture with routine healing (principal)

== ENCOUNTER 2022-12-29 08:17 | Outpatient (CLI) | payer MEDICARE, OTHER ==
[2022-12-29 12:13] LABS: ESTIMATED AVERAGE GLUCOSE 123 mg/dL (70-100); HEMOGLOBIN A1c% 5.9 % (4.27-6.07)
[2022-12-29 12:18] LABS: ALBUMIN 4.3 g/dL (3.2-5.5); ALBUMIN/GLOBULIN RATIO 1.2 (1.0-2.2); ALKALINE PHOSPHATASE 60 IU/L (42-121); ALT ALANINE AMINOTRANSFERASE 23 IU/L (10-60); AST ASPARTATE AMINOTRANSFERASE 30 IU/L (10-42); BILIRUBIN,TOTAL 0.7 mg/dL (0.2-1.0); BUN - BLOOD UREA NITROGEN 18 mg/dL (6-20); CALCIUM 9.7 mg/dL (8.5-10.3); CARBON DIOXIDE - CO2 30 mmol/L (21-32); CHLORIDE 103 mmol/L (101-111); CHOL/HDL RATIO 2.9 (<5.0); CHOLESTEROL 114 mg/dL; CREATININE 1.1 mg/dL (0.6-1.3); GFR - MDRD 64 (>89); GLUCOSE 93 mg/dL (74-104); HDL CHOLESTEROL 40 mg/dL; LDL CHOLESTEROL,CALCULATED 48 mg/dL; LDL/HDL RATIO 1.2 (<3.6); POTASSIUM 4.5 mmol/L (3.5-4.5); SODIUM 140 mmol/L (135-145); TRIGLYCERIDES 129 mg/dL (48-352); VLDL CHOLESTEROL 26 mg/dL
[2022-12-29 12:42] LABS: CREATININE,URINE 114.3 mg/dL; MICROALBUMIN,URINE 1.6 mg/dL
== END 2022-12-29 08:18 | disposition home or self-care (01) ==
LOC: LAB.N 08:17
PROVIDERS: ATTEND Internal Medicine
DX: I10 Essential (primary) hypertension (principal); E78.5 Hyperlipidemia, unspecified; E11.9 Type 2 diabetes mellitus without complications
CPT/HCPCS: 36415; 80053; 80061; 82043; 82570; 83036; 83721

== ENCOUNTER 2023-06-12 19:56 | Outpatient (CLI) | payer MEDICARE, OTHER | END 2023-06-12 23:59 | disposition short-term general hospital (02) | LOC: EMS 19:56 | DX: R55 Syncope and collapse (principal); R09.89 Other specified symptoms and signs involving the circulatory and respiratory systems | CPT/HCPCS: A0425; A0427 ==

== ENCOUNTER 2023-06-28 12:00 | Outpatient (CLI) | payer MEDICARE, OTHER ==
[2023-06-28 12:14] LABS: BASOPHILS % (AUTO) 0.3 %; EOSINOPHILS # (AUTO) 0.2 10^3/uL (0.0-0.7); EOSINOPHILS % (AUTO) 1.9 %; HCT - HEMATOCRIT 40.9 % (42.0-52.0); HGB - HEMOGLOBIN 12.6 g/dL (14.0-18.0); LYMPHOCYTES # (AUTO) 2.7 10^3/uL (1.5-3.5); LYMPHOCYTES % (AUTO) 30.5 %; MEAN CORPUSCULAR HEMOGLOBIN 28.4 pg (27.0-31.0); MEAN CORPUSCULAR HGB CONC 30.8 g/dL (32.0-36.0); MEAN CORPUSCULAR VOLUME 92.1 fL (80.0-94.0); MONOCYTES # (AUTO) 0.8 10^3/uL (0.0-1.0); MONOCYTES % (AUTO) 8.8 %; NEUTROPHILS % (AUTO) 57.1 %; PLT - PLATELET COUNT 160 10^3/uL (130-450); RED BLOOD COUNT 4.44 10^6/uL (4.70-6.10); RED CELL DISTRIBUTION WIDTH 13.6 % (12.0-15.0); WHITE BLOOD COUNT 8.8 x10^3/uL (4.8-10.8)
== END 2023-06-28 12:01 | disposition home or self-care (01) ==
LOC: LAB 12:00
PROVIDERS: ATTEND Physician Assistant Medical
DX: D69.6 Thrombocytopenia, unspecified (principal)
CPT/HCPCS: 36415; 85025

== ENCOUNTER 2023-07-09 09:06 | Outpatient (CLI) | payer MEDICARE, OTHER ==
[2023-07-09 09:17] LABS: BASOPHILS % (AUTO) 0.2 %; EOSINOPHILS # (AUTO) 0.2 10^3/uL (0.0-0.7); EOSINOPHILS % (AUTO) 2.6 %; HGB - HEMOGLOBIN 13.5 g/dL (14.0-18.0); LYMPHOCYTES # (AUTO) 3.1 10^3/uL (1.5-3.5); LYMPHOCYTES % (AUTO) 33.2 %; MEAN CORPUSCULAR HEMOGLOBIN 28.2 pg (27.0-31.0); MEAN CORPUSCULAR HGB CONC 30.7 g/dL (32.0-36.0); MEAN CORPUSCULAR VOLUME 91.9 fL (80.0-94.0); MEAN PLATELET VOLUME 12.8 fL (7.4-11.4); MONOCYTES % (AUTO) 10.3 %; NEUTROPHILS # (AUTO) 4.8 10^3/uL (1.5-6.6); NEUTROPHILS % (AUTO) 52.5 %; PLT - PLATELET COUNT 127 10^3/uL (130-450); RED BLOOD COUNT 4.79 10^6/uL (4.70-6.10); WHITE BLOOD COUNT 9.2 x10^3/uL (4.8-10.8)
[2023-07-09 10:47] LABS: FERRITIN 152.9 ng/mL (23.9-336.2)
== END 2023-07-09 09:07 | disposition home or self-care (01) ==
LOC: LAB 09:06
PROVIDERS: ATTEND Physician Assistant Medical
DX: D64.9 Anemia, unspecified (principal)
CPT/HCPCS: 36415; 82607; 82728; 82746; 83540; 84466; 85025

== ENCOUNTER 2023-07-09 09:10 | Outpatient (CLI) | payer MEDICARE, OTHER ==
[2023-07-09 09:45] LABS: FECAL OCCULT BLOOD (FIT) POSITIVE (NEGATIVE)
== END 2023-07-09 09:11 | disposition home or self-care (01) ==
LOC: LAB.R 09:10
PROVIDERS: ATTEND Physician Assistant Medical
DX: D64.9 Anemia, unspecified (principal)
CPT/HCPCS: 82274

== ENCOUNTER 2023-09-11 09:33 | Outpatient (CLI) | payer MEDICARE, OTHER ==
[2023-09-11 12:10] LABS: CALCIUM 9.9 mg/dL (8.5-10.3); POTASSIUM 4.3 mmol/L (3.5-4.5)
[2023-09-11 13:49] LABS: ESTIMATED AVERAGE GLUCOSE 123 mg/dL (70-100); HEMOGLOBIN A1c% 5.9 % (4.27-6.07)
== END 2023-09-11 09:34 | disposition home or self-care (01) ==
LOC: LAB.N 09:33
PROVIDERS: ATTEND Internal Medicine
DX: E11.9 Type 2 diabetes mellitus without complications (principal)
CPT/HCPCS: 36415; 80048; 83036

== ENCOUNTER 2023-09-21 09:34 | Outpatient (CLI) | payer MEDICARE, OTHER ==
--- NOTE | 2023-09-21 23:52 | XRAY Report ---
PROCEDURE: Ankle 3+V RT INDICATIONS: RIGHT FOOT JOINT PAIN TECHNIQUE: 3 views of the ankle were acquired. COMPARISON: Right ankle radiographs 07/18/2022. FINDINGS: Bones: Distal fibula ORIF. No screw fracture. No fractures or dislocations. Ankle mortise is normal ly aligned. No suspicious bony lesions. Soft tissues: No tibiotalar joint effusion. Achilles tendon appears normal. IMPRESSION: Stable appearance of the distal fibula ORIF. Reviewed by: Venkata Matta MD on 09/21/2023 11:51 PM PDT Approved by: Venkata Matta MD on 09/21/2023 11:51 PM PDT Station ID: [id number]
--- NOTE | 2023-09-24 08:26 | XRAY Report ---
PROCEDURE: Foot 3+V RT INDICATIONS: RIGHT FOOT JOINT PAIN TECHNIQUE: 3 views of the foot were acquired. COMPARISON: Same day ankle radiographs 09/21/2023. FINDINGS: Bones: Bones are demineralized. Partially visualized distal fibular fixation hardware. Mild degenerat jared changes, worse at the first MTP joint. No acute fractures or dislocations. No suspicious bony le sions. Soft tissues: No tibiotalar joint effusion. Achilles tendon appears normal. IMPRESSION: No acute bony abnormality. 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 Reviewed by: Alfreda Nesbitt MD, PhD on 09/24/2023 8:25 AM PDT Approved by: Alfreda Nesbitt MD, PhD on 09/24/2023 8:25 AM PDT Station ID: [id number]
== END 2023-09-21 09:35 | disposition home or self-care (01) ==
LOC: DI 09:34
PROVIDERS: ATTEND Internal Medicine
DX: S82.831D Other fracture of upper and lower end of right fibula, subsequent encounter for closed fracture with routine healing (principal); M19.071 Primary osteoarthritis, right ankle and foot